=== PATIENT | female | born 1980 | race Caucasian/White ===

== ENCOUNTER 2020-07-18 08:43 | Outpatient (CLI) | payer BC ==
--- NOTE | 2020-07-18 09:03 | MMO ---
Left Breast MAMMO Unilat Diag [facility] LT+JULIET. CLINICAL HISTORY: Patient is 39 years old and is seen for diagnostic exam. VIEWS: The views performed were: . FILMS COMPARED: The present examination has been compared to prior imaging studies performed at [facility] on 12/19/2019 and 12/20/2019. This study has been interpreted with the assistance of computer-aided detection. MAMMOGRAM FINDINGS: There are scattered fibroglandular densities. There is a stable lobular mass measuring 12 millimeters with circumscribed margins seen in the central region of the left breast. IMPRESSION: STABLE MASS IN THE LEFT BREAST IS PROBABLY BENIGN. FOLLOW-UP IN 6 MONTHS IS RECOMMENDED. THE RESULTS OF THIS EXAM WERE SENT TO THE PATIENT. ACR BI-RADS Category 3 - Probably benign finding - short interval follow-up suggested. [facility] will notify the patient of the need for additional imaging services. MAMMOGRAPHY NOTE: 1. A negative mammogram report should not delay a biopsy if a dominant of clinically suspicious mass is present. 2. Approximately 10% to 15% of breast cancers are not detected by mammography. 3. Adenosis and dense breasts may obscure an underlying neoplasm. Reported by: SUAD NIELSON MD Electonically Signed: [id number]
== END 2020-07-18 08:44 | disposition home or self-care (01) ==
LOC: BICMAMMO 08:43
PROVIDERS: ATTEND Family Medicine
DX: N63.20 Unspecified lump in the left breast, unspecified quadrant (principal)
CPT/HCPCS: G0279

== ENCOUNTER 2022-12-13 13:44 | Outpatient (CLI) | payer BC | END 2022-12-13 13:45 | disposition home or self-care (01) | LOC: BICMAMMO 13:44 | PROVIDERS: ATTEND Family Medicine | DX: Z12.31 Encounter for screening mammogram for malignant neoplasm of breast (principal); Z80.3 Family history of malignant neoplasm of breast | CPT/HCPCS: 77063; 77067 ==

== ENCOUNTER 2022-12-14 09:20 | Outpatient (CLI) | payer BC | END 2022-12-14 09:21 | disposition home or self-care (01) | LOC: BICULT 09:20 | PROVIDERS: ATTEND Family Medicine | DX: R92.8 Other abnormal and inconclusive findings on diagnostic imaging of breast (principal) ==

== ENCOUNTER → 2022-12-17 | Day surgery (SDC) | payer BC | END | disposition home or self-care (01) | LOC: BICULT 08:07 | PROVIDERS: ATTEND Family Medicine | PROC: 0H9U3ZX Drainage of Left Breast, Percutaneous Approach, Diagnostic (ICD-10-PCS; principal; 2022-12-17) | DX: N60.22 Fibroadenosis of left breast (principal) | CPT/HCPCS: 19083; 88305 ==

== ENCOUNTER 2024-01-06 09:20 | Outpatient (CLI) | payer BC | END 2024-01-06 09:21 | disposition home or self-care (01) | LOC: BICMAMMO 09:20 | PROVIDERS: ATTEND Family Medicine | DX: Z12.31 Encounter for screening mammogram for malignant neoplasm of breast (principal); Z80.3 Family history of malignant neoplasm of breast | CPT/HCPCS: 77063; 77067 ==